=== PATIENT | female | born 1940 | race Caucasian/White ===

== ENCOUNTER → 2016-12-01 | Outpatient (CLI) | payer MEDICARE, BC | LOC: MW.CHIM 08:00 | DX: D64.9 Anemia, unspecified (principal) | CPT/HCPCS: 96372; J3420 ==

== ENCOUNTER → 2016-12-14 | Outpatient (CLI) | payer MEDICARE, BC ==
[2016-12-14 16:58] LABS: CHLORIDE,CL 108 mmol/L (98-110); SODIUM,NA 142 mmol/L (136-146)
== END ==
LOC: MW.CHIM 16:19
PROVIDERS: ATTEND Internal Medicine
DX: D64.9 Anemia, unspecified (principal); R10.812 Left upper quadrant abdominal tenderness; R10.811 Right upper quadrant abdominal tenderness; R73.01 Impaired fasting glucose; F41.9 Anxiety disorder, unspecified; G47.62 Sleep related leg cramps; R74.0 Nonspecific elevation of levels of transaminase and lactic acid dehydrogenase [LDH]; K29.50 Unspecified chronic gastritis without bleeding; I12.9 Hypertensive chronic kidney disease with stage 1 through stage 4 chronic kidney disease, or unspecified chronic kidney disease; N18.9 Chronic kidney disease, unspecified
CPT/HCPCS: 36415; 80053; 80061; 82150; 83036; 83540; 84439; 84443; 85025; 85652; 86140; 99214

== ENCOUNTER → 2016-12-15 | Outpatient (CLI) | payer MEDICARE, BC | END | disposition home or self-care (01) | LOC: MW.CHIM 11:39 | PROVIDERS: ATTEND Internal Medicine | DX: R77.1 Abnormality of globulin (principal) | CPT/HCPCS: 36415; 84165 ==

== ENCOUNTER → 2016-12-30 | Outpatient (CLI) | payer MEDICARE, BC | LOC: MW.CHIM 08:00 | PROVIDERS: ATTEND Internal Medicine | DX: D64.9 Anemia, unspecified (principal) | CPT/HCPCS: 96372; J3420 ==

== ENCOUNTER → 2017-01-18 | Outpatient (CLI) | payer MEDICARE, BC | LOC: MW.CHIM 08:00 | PROVIDERS: ATTEND Internal Medicine | DX: I10 Essential (primary) hypertension (principal); K29.50 Unspecified chronic gastritis without bleeding; Z86.79 Personal history of other diseases of the circulatory system | CPT/HCPCS: G0463 ==

== ENCOUNTER → 2017-02-02 | Outpatient (CLI) | payer MEDICARE, BC | LOC: MW.CHIM 08:00 | PROVIDERS: ATTEND Internal Medicine | DX: D64.9 Anemia, unspecified (principal) | CPT/HCPCS: 96372; J3420 ==

== ENCOUNTER 2019-10-16 07:42 | Day surgery (SDC) | payer MEDICARE, BC ==
[~2019-10-16 07:42] MED LIST: Lactated Ringers 1,000 ML IV SCH; Sodium Chloride 0.9% 10 ML SDV IV PRN; Sodium Chloride 0.9% 10 ML Syringe FLUSH PRN; Sodium Chloride 0.9% 2.5 ML Syringe FLUSH PRN
[2019-10-16] MEDS ORDERED: Bupivacaine 0.5% 10 ML SDV ONE (08:48)
[2019-10-16] MEDS ORDERED: Octyl 2-Cyanoacrylate 1 Tube ONE (08:49)
[2019-10-16] MEDS ORDERED: Lidocaine 1% 20 ML MDV ONE (08:49)
--- NOTE | 2019-10-16 11:11 | PCM.OPNOTE ---
- General Post-Op/Procedure Note Date of Surgery/Procedure: 10/16/19 Operative Procedure(s): Excision right scalp lesion Findings: 1 cm lesion behind right pinna. 5mm margins when excised. Pre Op Diagnosis: Right scalp lesion Post-Op Diagnosis: same Anesthesia Technique: Local Primary Surgeon: Veronica XIAO in mLs: 5 Condition: Good
[2019-10-16 11:26] VITALS: BP 148/83; PULSE 73
--- NOTE | 2019-10-16 17:47 | OR ---
SURGEON: VERONICA QUIJANO MD DATE OF PROCEDURE: 10/16/2019 PREOPERATIVE DIAGNOSIS: Right scalp lesion. POSTOPERATIVE DIAGNOSIS: Right scalp lesion. PROCEDURE PERFORMED: Excision of right scalp lesion. PRIMARY SURGEON: Veronica Quijano MD. ANESTHESIA: Local. ESTIMATED BLOOD LOSS: 5 mL. FINDINGS: 1 cm skin lesion on the scalp line just behind the right pinna. 2 cm x 1 cm x 0.5 cm skin lesion and surrounding tissue removed. Margins 0.5 x 0.2 x 0.5 cm. COMPLICATIONS: None. INDICATIONS: The patient is an 79-year-old female who presents with a right scalp lesion that her hairdresser noticed. She would like to have it removed and sent to pathology. The patient and I discussed removing this in the operating room. I explained the procedure; expected perioperative course; and risks including bleeding, infection, or damage to surrounding structures. She verbalized understanding and wishes to proceed. PROCEDURE IN DETAIL: The patient was brought into the OR on the OR cart and placed in a beach chair position. A time-out was completed verifying the patient's name, age, date of , allergies, and procedure to be performed. The skin lesion was measured and found to be 1 cm in size. The area around the skin lesion was prepped and draped in usual standard fashion. I anesthetized the area surrounding and underneath the skin lesion with 1% lidocaine plain. Prior to my incision, I marked out my skin margins. These were 0.5 in the anterior and posterior sides and 2 to 3 mm on both the superior and inferior margins. An elliptical skin incision was made along these areas around the skin lesion using a 15 blade. Electrocautery was used to dissect down 0.5 cm within the subcutaneous fat layer. I then undermined the lesion. Once it was from the surrounding tissues, it was sent to pathology, labeled as right scalp lesion. Electrocautery was used to achieve hemostasis. Given how close this area of skin was to the ear, I undermined the superior and inferior skin flaps in order to provide a tension-free closure. This allowed me to close the wound without any undue tension using interrupted 3-0 Ethilon suture. The area was washed and a sterile dressing applied. The patient tolerated the procedure well and was transferred to PACU in stable condition. All counts were complete and correct at the end of the case. LEMEASH / MODL /[id number]
== END 2019-10-16 11:40 | disposition home or self-care (01) ==
LOC: MW.SDS 07:42
PROVIDERS: ATTEND Surgery
DX: L82.1 Other seborrheic keratosis (principal); I12.9 Hypertensive chronic kidney disease with stage 1 through stage 4 chronic kidney disease, or unspecified chronic kidney disease; N18.9 Chronic kidney disease, unspecified; Z88.8 Allergy status to other drugs, medicaments and biological substances; Z88.0 Allergy status to penicillin; Z91.041 Radiographic dye allergy status; Z88.1 Allergy status to other antibiotic agents; Z88.2 Allergy status to sulfonamides; Z79.899 Other long term (current) drug therapy
CPT/HCPCS: 11423; 88305; A9270; J2001; J7120; J3490

== ENCOUNTER 2023-08-29 11:59 | Emergency (ER) | payer MEDICARE, BC ==
[2023-08-29 13:35] VITALS: BP 182/93
[2023-08-29] MEDS ORDERED: Sodium Chloride 0.9% 1,000 ML IV ONE (13:39)
[2023-08-29 13:51] LABS: BASOPHILS ABSOLUTE AUTO 0.05 K/uL (0.00-0.20); BASOPHILS PERCENT AUTO 0.5 % (0.0-1.0); EOSINOPHILS ABSOLUTE AUTO 0.06 K/uL (0.00-0.45); EOSINOPHILS PERCENT AUTO 0.6 % (0.0-6.0); HEMATOCRIT 39.7 % (37.0-47.0); HEMOGLOBIN 13.6 g/dL (12.0-16.0); IMMATURE GRAN ABSOLUTE AUTO 0.02 K/uL (0.00-0.05); IMMATURE GRAN PERCENT AUTO 0.2 % (0.0-0.4); LYMPHOCYTES ABSOLUTE AUTO 2.31 K/uL (1.00-4.80); MEAN CORPUSCULAR HEMOGLOBIN 31.1 pg (28.0-32.0); MEAN CORPUSCULAR HGB CONC 34.3 g/dL (32.0-36.0); MEAN CORPUSCULAR VOLUME 90.8 fL (83.0-99.0); MEAN PLATELET VOLUME 10.1 fL (9.4-12.3); MONOCYTES ABSOLUTE AUTO 0.79 K/uL (0.00-0.80); MONOCYTES PERCENT AUTO 7.5 % (0.0-8.0); NEUTROPHILS ABSOLUTE AUTO 7.27 K/uL (1.80-7.70); NEUTROPHILS PERCENT AUTO 69.2 % (41.0-71.0); PLATELET COUNT,PLT 329 K/uL (150-400); RED BLOOD CELL COUNT 4.37 M/uL (4.10-5.30)
[2023-08-29 14:30] LABS: A/G RATIO 0.8 (0.9-1.6); ALBUMIN 3.9 g/dL (3.4-5.0); BILIRUBIN TOTAL 0.4 mg/dL (0.2-1.0); CALCIUM 9.5 mg/dL (8.5-10.1); EST CRCL DRUG DOSING (CG) 35.52 mL/min; POTASSIUM,K 4.2 mmol/L (3.5-5.1); PROTEIN TOTAL,TP 8.7 g/dL (6.4-8.2)
[2023-08-29 15:23] LABS: BILIRUBIN,URINE NEGATIVE (NEGATIVE); COLOR,URINE YELLOW; GLUCOSE,URINE NEGATIVE (NEGATIVE); KETONES,URINE NEGATIVE (NEGATIVE); LEUKOCYTE ESTERASE,URINE SMALL (NEGATIVE); NITRITE,URINE NEGATIVE (NEGATIVE); OCCULT BLOOD,URINE SMALL (NEGATIVE); PROTEIN,URINE NEGATIVE (NEGATIVE); UROBILINOGEN,URINE 0.2 EU/dL (<2.0)
[2023-08-29 15:25] LABS: APPEARANCE,URINE HAZY
[2023-08-29 15:32] LABS: BACTERIA,URINE FEW (NEGATIVE); MUCUS,URINE LIGHT (NONE-MOD); SQUAMOUS EPITHELIAL CELLS,UR FEW
[2023-08-29 16:43] VITALS: PULSE 72
== END 2023-08-29 16:43 | disposition home or self-care (01) ==
LOC: MW.ED 11:59
DX: N30.00 Acute cystitis without hematuria (principal); I10 Essential (primary) hypertension; Z88.0 Allergy status to penicillin; Z88.1 Allergy status to other antibiotic agents; Z91.041 Radiographic dye allergy status; Z88.2 Allergy status to sulfonamides; Z79.899 Other long term (current) drug therapy; Z90.49 Acquired absence of other specified parts of digestive tract; Z90.710 Acquired absence of both cervix and uterus
CPT/HCPCS: 36415; 74176; 80053; 81001; 83690; 85025; 96360; 96361; 99284; J7030; 99283

== ENCOUNTER 2023-10-07 08:00 | Day surgery (SDC) | payer MEDICARE, BC ==
[~2023-10-07 08:00] MED LIST changes: -Sodium Chloride 0.9% 10 ML SDV IV PRN; -Sodium Chloride 0.9% 10 ML Syringe FLUSH PRN; -Sodium Chloride 0.9% 2.5 ML Syringe FLUSH PRN
[2023-10-07] MEDS ORDERED: Propofol 200 MG/20 ML SDV ONE (08:30)
[2023-10-07 10:15] VITALS: PULSE 59
[2023-10-07 11:38] VITALS: BP 102/56
== END 2023-10-07 11:08 | disposition home or self-care (01) ==
LOC: MW.SDS 08:00
PROVIDERS: ATTEND Surgery
DX: K29.50 Unspecified chronic gastritis without bleeding (principal); K31.A0 Gastric intestinal metaplasia, unspecified; K21.00 Gastro-esophageal reflux disease with esophagitis, without bleeding; F41.9 Anxiety disorder, unspecified; N18.9 Chronic kidney disease, unspecified; E66.01 Morbid (severe) obesity due to excess calories; Z79.899 Other long term (current) drug therapy; Z88.2 Allergy status to sulfonamides; Z88.1 Allergy status to other antibiotic agents; Z91.041 Radiographic dye allergy status
CPT/HCPCS: 43239; J2704; J7120; 00731; 99100